=== PATIENT | male | born 1975 | race Caucasian/White ===

== ENCOUNTER 2018-09-12 12:42 | Emergency (ER) | payer SELFPAY ==
[~2018-09-12] VITALS: Ht 185.4 cm; Wt 68.2 kg
[2018-09-12 12:45] VITALS: Ht 185.4 cm; Wt 68.2 kg
[2018-09-12 14:10] LABS: UDS - AMPHET NEGATIVE QUAL (NEGATIVE); UDS - BARB NEGATIVE QUAL (NEGATIVE); UDS - BENZO NEGATIVE QUAL (NEGATIVE); UDS - COCAINE NEGATIVE QUAL (NEGATIVE); UDS - OPIATE NEGATIVE QUAL (NEGATIVE); UDS - PCP NEGATIVE QUAL (NEGATIVE); UDS - THC NEGATIVE QUAL (NEGATIVE)
[2018-09-12 14:14] LABS: APPEARANCE CLEAR (CLEAR); BACTERIA NONE SEEN /hpf (NONE SEEN); BILIRUBIN NEGATIVE (NEGATIVE); COLOR YELLOW (YELLOW); EPITHELIAL CELLS NSEEN /hpf (0-5); GLUCOSE NEGATIVE (NEGATIVE); KETONE NEGATIVE (NEGATIVE); NITRITE NEGATIVE (NEGATIVE); PROTEIN NEGATIVE (NEGATIVE); RED CELLS - URINE 0-5 /hpf (0-5); SPECIFIC GRAVITY 1.005 (1.005-1.020); UROBILINOGEN NORMAL (NORMAL); WHITE CELLS - URINE NSEEN /hpf (0-5)
[2018-09-12 14:15] VITALS: BP 140/88
== END 2018-09-12 14:16 | disposition home or self-care (01) ==
LOC: D.ER 12:42
PROVIDERS: Family Medicine
DX: F32.9 Major depressive disorder, single episode, unspecified (principal); F41.9 Anxiety disorder, unspecified

== ENCOUNTER 2018-09-14 14:04 | Emergency (ER) | payer SELFPAY ==
[~2018-09-14] VITALS: Ht 185.4 cm; Wt 63.6 kg
[2018-09-14 14:10] VITALS: Ht 185.4 cm; Wt 63.6 kg
[2018-09-14 17:14] VITALS: BP 124/70
== END 2018-09-14 17:16 | disposition home or self-care (01) ==
LOC: D.ER 14:04
DX: F43.10 Post-traumatic stress disorder, unspecified (principal); X58.XXXA Exposure to other specified factors, initial encounter; Y93.89 Activity, other specified; Y92.89 Other specified places as the place of occurrence of the external cause; F41.9 Anxiety disorder, unspecified